=== PATIENT | female | born 1980 | race Caucasian/White ===

== ENCOUNTER 2021-10-07 10:38 | Day surgery (SDC) | payer OTHER ==
[2021-10-07] MEDS ORDERED: EXPAREL 133 MG/10 ML VIAL IJ ONE (10:39)
[2021-10-07] MEDS ORDERED: CEFAZOLIN 2 GM-D5W BAG** 2 GM/50 ML ML IV ONE (11:10)
[2021-10-07] MEDS ORDERED: Lactated Ringers 1,000 ML IV ONE ×2 (11:11→13:36)
[2021-10-07] MEDS ORDERED: Lactated Ringers 1,000 ML IV SCH (11:30)
[2021-10-07] MEDS ORDERED: CEFAZOLIN 2 GM-D5W BAG** 2 GM/50 ML ML IV SCH (11:30)
[2021-10-07] MEDS ORDERED: Transderm Scop 1.5MG Patch TOP ONE (11:33)
[2021-10-07] MEDS ORDERED: Versed 2 MG/2 ML Injection IV PRN (11:34)
[2021-10-07] MEDS ORDERED: Versed 2 MG/2 ML Injection ONE (11:36)
[2021-10-07] MEDS ORDERED: Transderm Scop 1.5MG Patch ONE (11:36)
[2021-10-07] MEDS ORDERED: SUBLIMAZE 100 MCG/2 ML ONE ×2 (12:42→14:58)
[2021-10-07] MEDS ORDERED: OFIRMEV 100 ML IV ONE (12:43)
[2021-10-07] MEDS ORDERED: Ephedrine Sulfate 50 MG/ML ONE (13:53)
[2021-10-07] MEDS ORDERED: DIPRIVAN 200 MG/20 ML IV ONE (14:29)
[2021-10-07] MEDS ORDERED: Decadron 4 MG INJ ONE (14:30)
[2021-10-07] MEDS ORDERED: Zofran 4 MG/2 ML VIAL ONE (14:30)
[2021-10-07] MEDS ORDERED: Marcaine 0.5%/Epinephrine 10 ML ONE (14:30)
[2021-10-07] MEDS ORDERED: Xylocaine-Mpf 2% 5 Ml Vial ONE (14:30)
[2021-10-07] MEDS ORDERED: Quelicin Fliptop 200 MG/10 ML ONE (14:31)
[2021-10-07] MEDS ORDERED: Zemuron 100 MG/10 ML ONE (14:34)
[2021-10-07] MEDS ORDERED: BRIDION 200MG/2ML IV ONE (14:36)
--- NOTE | 2021-10-07 14:51 | XRAY ---
Indication: Left foot navicular excision. Intraoperative fluoroscopy provided for 55 seconds. 8 digital spot images ultimately demonstrates partial resection of medial aspect navicular bone. Correlate with intraoperative findings/report.
[2021-10-07] MEDS ORDERED: Hydromorphone 1 mg/ml Injection ONE (14:58)
[2021-10-07] MEDS ORDERED: EPINEPHRINE 1MG/ML AMP ONE (15:15)
[2021-10-07] MEDS ORDERED: Naropin 0.5% 30 ML VIAL ONE (15:15)
--- NOTE | 2021-10-07 16:38 | OP ---
SURGERY DATE: 10/07/2021 SURGERY TIME: 1242 PREOPERATIVE DIAGNOSIS: 1. ENLARGED NAVICULAR TUBEROSITY LEFT FOOT. 2. POSTERIOR TIBIAL TENDONITIS. 3. PAIN LEFT FOOT. POSTOPERATIVE DIAGNOSIS: 1. ENLARGED NAVICULAR TUBEROSITY LEFT FOOT. 2. POSTERIOR TIBIAL TENDONITIS. 3. PAIN LEFT FOOT. PROCEDURE: 1. Navicular tuberosity excision. 2. Debridement of posterior tibial tendon with tendon advancement. SURGEON: Nilson Swanson D.P.M. MONITORING MANAGER: None. ANESTHESIA: General plus a postoperative regional block. See anesthesia report for details. HEMOSTASIS: A thigh tourniquet set to 350 mm Hg for 57 total minute's tourniquet time. ESTIMATED BLOOD LOSS: Less than 10 cc. MATERIALS: A Jw 2.9 mm juggernaut with broadband, 4-0 Monocryl, and 3-0 Nylon. INJECTABLES: See anesthesia report for details. INDICATIONS FOR PROCEDURE: Alysa is a very pleasant 40 y/o female who presented to my clinic with complaints of left foot pain. The patient did have some indications of pain approximately 1 year ago and presented to another provider in [place] who performed a procedure very similar to the one planned today for her right and left foot. Her right foot responded without complication. Her left foot on the other hand seemed to delay as far as success with the procedure and she stagnated 1 year following the procedure. The patient has failed all conservative management for this issue. On x-rays, it did seem that her navicular tuberosity is significantly enlarged and she could potentially benefit from further excision. An MRI was obtained demonstrating no residual inflammation of the posterior tibial tendon. However, it did appear to be significantly enlarged secondary to postsurgical changes and potentially this may be causing her a significant amount of pain. The patient understands going into the procedure that there is a possibility that the enlarged tendon may need to be resected out and the possibility of a flexor digitorum longus tendon transfer would be performed in its stead. The patient understands all risks, complications, and benefits of the procedure including, but not limited to, infection, hematoma, seroma, possibility of non-bone healing, non-wound healing, tendon failure as well as possible failure of surgical intervention and need for further surgical intervention at a later date. No guarantees were provided as to the outcome. Plenty of time was allowed for the patient to ask questions which were answered to the patient's apparent satisfaction. It is with that we decided to proceed. DESCRIPTION OF PROCEDURE: The patient was brought in to the OR and placed on the OR table in the supine position. At this time, adequate anesthesia was administered until the patient was sedated. A well-padded thigh tourniquet was applied to the left thigh and the tourniquet was set to 350 mm Hg. At this time, the left lower extremity was prepped and draped in the typical sterile fashion and lowered onto the surgical field. At this time, attention was directed to the medial aspect of the ankle where the navicular tuberosity was easily prominent and palpated. A similar incision was planned to the previous incision made by the other provider. However, our incision extended past this incision site. Skin marker was utilized to draw out this site. At this time, an Esmarch was utilized to exsanguinate the leg and the tourniquet was set to 350 mm Hg. A 15 blade was utilized to carry down through the marked out soft tissue planes encountering immediate scar tissue in this area that was very significant. At this time, blunt and sharp dissection was carried down to the level of the navicular tuberosity reflecting the remnant of the thickened posterior tibial tendon dorsa and plantarly off of the navicular tuberosity. Under fluoroscopic guidance, an osteotome was utilized to resect the bone from distal to proximal. A measurement of approximately 6 mm of bone was taken off of this area. Following this, a power rasp was utilized to plane down the edges of the bone until they were smooth with the medial cuneiform and as not to damage the articular cartilage of the talonavicular joint. At this time, copious amounts of sterile saline were utilized to flush the surgical site. The tendon was inspected and determined to have calcifications within the deep segment which was resected out for approximately 3 cm from the insertion of the posterior tibial tendon on its bony attachments at the navicular. At this time, the tendon was deemed to be within adequate quality. Some of the bone and tendon were handed off the field at this time for pathological assessment. At this time, a 2.9 juggernaut with broadband from Jw was introduced under fluoroscopic guidance into the body of the navicular. The 2 ends of suture black screen were cut off and the sliding suture was passed through the dorsal and plantar remnants of the posterior tibial tendon. This was carried up to the proximal aspect of the tendon through a modified Barrie type stitch and secured proximally. The capsule was then repaired over the top of the tendon itself to avoid any irritation from the knot. Copious amounts of sterile saline were utilized to flush the surgical site. 4-0 Monocryl was utilized to coapt the subcutaneous skin edges in a simple buried type fashion. Following this, a horizontal mattress type fashion stitch was used to coapt the skin edges in an everted type fashion. Following this, dressing consisting of betadine, Adaptic, 4 X 4, and Kerlix was applied to the left lower extremity. A well-padded posterior splint was then applied to the left lower extremity with the foot orthogonal relative to the longitudinal access of the leg. Patient was then provided a postoperative popliteal and saphenous block. See anesthesia report for details. Following this, the patient was returned to the PACU with vital signs stable and vascular status intact. The patient handled the procedure as well as the anesthesia without significant complication. Postoperative orders as indicated in the patient's discharge chart.
[2021-10-07 16:41] VITALS: BP 107/64; PULSE 75; O2SAT 99
--- NOTE | 2021-10-08 07:20 | XRAY ---
55 seconds fluoroscopy time in surgery for excision of enlarged navicular left foot.
== END 2021-10-07 16:50 | disposition home or self-care (01) ==
LOC: SDC 10:38
PROVIDERS: ATTEND Podiatrist Foot & Ankle Surgery
DX: M76.822 Posterior tibial tendinitis, left leg (principal); M79.672 Pain in left foot; Q66.89 Other specified congenital deformities of feet; M67.962 Unspecified disorder of synovium and tendon, left lower leg
CPT/HCPCS: 28232; 28238; 73620; 76000; 84703; C1713; 64447; 64450; 76942; J0171; J0330; J0690; J1100; J1170; J2250; J2405; J2704; J2795; J3010; A9270-GY

== ENCOUNTER 2023-10-01 11:25 | Emergency (ER) | payer OTHER ==
--- NOTE | 2023-10-01 11:29 | ERPHSYRPT ---
- History of Present Illness Time Seen by Provider: 10/01/23 11:29 Source: patient Exam Limitations: no limitations Physician History: This is a 42-year-old white female patient of Dr. Lopez and strategic advisor Dr. Francisca Bailey. Dr. Bailey evaluated this patient today and felt that the patient's bladder was markedly enlarged. Patient is sent to us for both enlarge d bladder and urinary retention. The patient was seen by nurse practitioner Josh on 09/26/2023 and felt that this patient had a uterine prolapse and that is how she was referred to Dr. Bailey, gynecology. Since Dr. Bailey did not have the equipment or the option of performing studies acutely, this patient is sent to the emergency department. Patient is complaining of painful straining to urinate and is only "dribbling" urine for the last 2 to 3 days. She has never had this before. Patient also complains of constipation and difficulty having bowel movements in the last several days as well. Patient has a history of anxiety as well as TIA in the past. Her TIA was secondary to "a blood clot" intracranially. She has residual left upper extremity weakness from it. Timing/Duration: day(s), worse (2 to 3 days) Activites at Onset: other (Attempting to urinate or have a bowel movement) Quality: sharpness Onset Location: suprapubic, abdominal pain Pain Radiation: none Severity of Pain-Max: moderate Severity of Pain-Current: moderate Prior abdominal problems: none Sexual intercourse history: non-contributory Modifying Factors: Improves With: nothing Associated Symptoms: abdominal pain (Prepubic and pelvic region), dysuria, other (Urinary urgency, retention) Allergies/Adverse Reactions: No Known Drug Allergies Allergy (Verified 10/01/23 11:35) Home Medications: ALPRAZolam 0.25 MG [xanAX 0.25 MG] 0.25 mg PO BID PRN 10/01/23 [History] Escitalopram Oxalate [Lexapro] 10 mg PO HS 10/01/23 [History] Travel Risk - International Travel Have you traveled outside of the country in past 3 weeks: No - Emerging Infectious Disease Are you exhibiting symptoms associated with any current EIDs: No - Review of Systems Constitutional: No Symptoms Eyes: No Symptoms Ears, Nose, & Throat: No Symptoms Respiratory: No Symptoms Cardiac: No Symptoms Abdominal/Gastrointestinal: Abdominal Pain (Prepubic region) Genitourinary Symptoms: Dysuria, Urgency, Urinary Retention Musculoskeletal: No Symptoms Skin: No Symptoms Neurological: No Symptoms Psychological: No Symptoms Endocrine: No Symptoms Hematologic/Lymphatic: No Symptoms Immunological/Allergic: No Symptoms All Other Systems: Reviewed and Negative - Past Medical History Pertinent Past Medical History: No Neurological History: TIA, Other ENT History: No Pertinent History Cardiac History: No Pertinent History Respiratory History: No Pertinent History Endocrine Medical History: No Pertinent History Musculoskeletal History: No Pertinent History GI Medical History: No Pertinent History History: No Pertinent History Psycho-Social History: No Pertinent History Female Reproductive Disorders: No Pertinent History Other Medical History: TIA WITH L UE SYMPTOMS, SHE HAD A BLOOD CLOT IN HER HEAD. SHE NOTES RESIDUAL WEAKNESS IN L UE. - Past Surgical History Past Surgical History: Yes Neuro Surgical History: No Pertinent History Cardiac: No Pertinent History Respiratory: No Pertinent History Gastrointestinal: No Pertinent History Genitourinary: No Pertinent History Musculoskeletal: Other Female Surgical History: Tubal Ligation, Other Other Surgical History: adrienne foot surgery, uterine ablation - Social History Smoking Status: Never smoker Drug Use: none - Nursing Vital Signs Nursing Vital Signs: Initial Vital Signs Temperature 98 F 10/01/23 11:25 Pulse Rate 78 10/01/23 11:25 Respiratory Rate 20 10/01/23 11:25 Blood Pressure 116/80 10/01/23 11:25 O2 Sat by Pulse Oximetry 100 10/01/23 11:25 Pain Scale Pain Intensity 7 - Course Nursing assessment & vital signs reviewed: Yes Ordered Tests: Active Orders 24 hr Category Date Time Status Cath [Catheter-Mikado Dykes] STAT Care 10/01/23 12:00 Active ABDOMEN AND PELVIS W/0 CONTRAS [CT] Stat Exams 10/01/23 11:31 Completed AMYLASE Stat Lab 10/01/23 11:35 Results CBC W DIFF Stat Lab 10/01/23 11:35 Completed CULTURE,URINE Stat Lab 10/01/23 11:30 Received LIPASE Stat Lab 10/01/23 11:35 Results UA W/RFX UR CULTURE Stat Lab 10/01/23 11:30 Completed Medication Summary Generic Name Dose Route Start Last Admin Trade Name Freq PRN Reason Stop Dose Admin Sodium Chloride 1,000 mls @ 999 mls/hr 10/01/23 12:37 10/01/23 12:49 Sodium Chloride 0.9% 1000 Ml IV 10/01/23 13:37 Not Given .Q1H1M STA Lab/Rad Data: Laboratory Result Diagrams 10/01/23 11:35 10/01/23 11:35 Laboratory Results 10/01/23 10/01/23 10/01/23 Range/Units 11:35 11:35 11:30 WBC 6.9 (4.0-10.5) x10^3/uL RBC 4.49 (4.1-5.4) x10^6/uL Hgb 12.9 (12.0-16.0) g/dL Hct 39.6 (35-47) % MCV 88.2 (78-100) fL MCH 28.7 (26-32) pg MCHC 32.6 (32-36) g/dL RDW 13.2 (11.5-14.0) % Plt Count 314 (150-450) x10^3/uL MPV 10.1 (7.5-11.0) fL Gran % 56.6 (36.0-66.0) % Immature Gran % (Auto) 0.1 (0.00-0.4) % Nucleat RBC Rel Count 0.0 (0.00-0.1) % Eos # (Auto) 0.19 (0-0.5) x10^3/uL Immature Gran # (Auto) 0.01 (0.00-0.03) x10^3u/L Absolute Lymphs (auto) 2.27 (1.0-4.6) x10^3/uL Absolute Monos (auto) 0.50 (0.0-1.3) x10^3/uL Absolute Nucleated RBC 0.00 (0.00-0.01) x10^3u/L Lymphocytes % 32.8 (24.0-44.0) % Monocytes % 7.2 (0.0-12.0) % Eosinophils % 2.7 (0.00-5.0) % Basophils % 0.6 (0.0-0.4) % Absolute Granulocytes 3.92 (1.4-6.9) x10^3/uL Basophils # 0.04 (0-0.4) x10^3/uL Sodium Cancelled Sodium Direct 139 (138-146) mmol/L Potassium 3.8 (3.5-4.9) mmol/L Chloride 102 (98-109) mmol/L Carbon Dioxide 26 (24-29) mmol/L Anion Gap Cancelled BUN Cancelled Venous BUN 22 (8-26) mg/dL Creatinine 0.8 (0.6-1.3) mg/dL Estimated GFR Cancelled Glucose 100 (70-105) mg/dL Calcium Cancelled Ionized Calcium 1.22 (1.12-1.32) mmol/L Total Bilirubin Cancelled AST Cancelled ALT Cancelled Alkaline Phosphatase Cancelled Serum Total Protein Cancelled Albumin Cancelled Amylase Pending Lipase Pending Urine Color Yellow (Yellow) Urine Appearance Clear (Clear) Urine pH 5.5 (4.6-8.0) Ur Specific [place] 1.010 (1.005-1.030) Urine Protein Negative (Negative) Urine Glucose (UA) Negative (Negative) mg/dL Urine Ketones Negative (Negative) Urine Blood Negative (Negative) Urine Nitrite Positive A (Negative) Urine Bilirubin Negative (Negative) Urine Urobilinogen 0.2 (0.2) mg/dL Ur Leukocyte Esterase Trace A (Negative) U Hyaline Cast (Auto) NONE SEEN (0-2) /LPF Urine Microscopic RBC 0-2 (0-5) /HPF Urine Microscopic WBC 6-10 A (0-5) /HPF Ur Epithelial Cells None Seen (None Seen) /HPF Urine Bacteria Many A (None Seen) /HPF Urine Culture Reflexed ORDERED SEPARATELY (NO) - Progress Progress: improved, re-examined Air Movement: good Progress Note: 10/01/23 12:34 My medical decision making and the assignment of moderate complexity to this patient's medical issue today is based on review of the patient's past medical history, review the patient's medication list, review of patient drug allergy list, history present illness and physical findings on examination. The workup in this patient includes placement of intravenous line, urinary bladder scan, CT scan of the abdomen pelvis without contrast, CBC, CMP, urinalysis and placement of a Dykse catheter. Differential diagnosis includes uterine prolapse, bladder prolapse, urinary tract infection, constipation, 10/01/23 12:38 CT scan of the abdomen pelvis without contrast was interpreted by the radiologist and I reviewed the impression. Impression states mild fecal stasis. Normal appendix. Nonobstructed stomach and bowel loops. No free air. Near empty urinary bladder. Uterus and aorta are unremarkable. Tiny amount of fluid in the cul-de-sac suggest possible leaking ovarian cyst. I discussed these findings with the patient. 10/01/23 13:10 I interpreted the patient's laboratory data results. Patient does have a uri nary tract infection. No other abnormal results on the patient's laboratory studies to suggest an acute or emergent medical issue at this time. We will attempt to make an appointment for this patient to see a strategic advisor to evaluate and manage the patient's uterine prolapse. 10/01/23 13:11 Patient states that the placement of a Dykes catheter did not relieve the patient's pain. Blood Culture(s) Obtained: No Counseled pt/family regarding: lab results, diagnosis, need for follow-up, rad results Medical Desision Making - Independent Historian Additional History obtained from: PCP - Diagnostic Testing Diagnostic test were ordered, analyzed, and reviewed by me: Yes Radiological Interpretation: Reviewed by me, Teleradiologist Report - Risk of complications The pt has a mod risk of morbidity or mortality based on: Need for prescription drug management - Departure Departure Disposition: Home Clinical Impression: Uterine prolapse, UTI (urinary tract infection) Condition: Stable Critical Care Time: No Referrals: RADHA MORENO NP [NON-STAFF PHY W/O PRIVILEGES] - Follow up/PCP as directed Additional Instructions: Drink plenty of fluids. Take your medications as prescribed. Follow-up with the gynecology appointment we arranged for you as an outpatient. Follow the bowel hygiene plan that we discussed including the use of MiraLAX, milk of magnesia and magnesium citrate which are products [id number] at the pharmacy. Follow their directions on the packaging. May also use stool softeners, fleets enemas or glycerin suppositories. Call your primary care provider today, 10/01/2023, to make arranges for follow-up appointment to discuss the constipation issue. Prescriptions: Cephalexin Mh 500 mg [Keflex 500 mg] 500 mg PO TID #21 cap Phenazopyridine HCl 200 mg [Pyridium 200 mg] 200 mg PO TID #6 tablet
[2023-10-01 11:47] LABS: Absolute Neutrophil Ct (ANC) 3.92 x10^3/uL (1.4-6.9); BASOPHIL % 0.6 % (0.0-0.4); Basophil (Absolute #) 0.04 x10^3/uL (0-0.4); Eosinophil % 2.7 % (0.00-5.0); Eosinophil (Absolute #) 0.19 x10^3/uL (0-0.5); Hematocrit 39.6 % (35-47); Hemoglobin 12.9 g/dL (12.0-16.0); IMMATURE GRAN # 0.01 x10^3u/L (0.00-0.03); IMMATURE GRAN % 0.1 % (0.00-0.4); Lymphocyte (Absolute #) 2.27 x10^3/uL (1.0-4.6); Lymphocytes % 32.8 % (24.0-44.0); Mean Cell Volume 88.2 fL (78-100); Mean Corpuscular Hemoglobin 28.7 pg (26-32); Mean Corpuscular Hgb Concent. 32.6 g/dL (32-36); Mean Platelet Volume 10.1 fL (7.5-11.0); Monocytes % 7.2 % (0.0-12.0); Neutrophil % 56.6 % (36.0-66.0); Platelet Count 314 x10^3/uL (150-450); Red Blood Count 4.49 x10^6/uL (4.1-5.4); Red Cell Distribution Width 13.2 % (11.5-14.0); White Blood Count 6.9 x10^3/uL (4.0-10.5)
[2023-10-01 11:52] VITALS: TEMP 98
[2023-10-01 11:57] LABS: ISTAT BUN 22 mg/dL (8-26); ISTAT CL 102 mmol/L (98-109); ISTAT CO2 26 mmol/L (24-29); ISTAT CREA 0.8 mg/dL (0.6-1.3); ISTAT GLUC 100 mg/dL (70-105); ISTAT K 3.8 mmol/L (3.5-4.9); ISTAT NA 139 mmol/L (138-146); ISTAT iCA 1.22 mmol/L (1.12-1.32)
--- NOTE | 2023-10-01 12:32 | XRAY ---
Indication: Urinary retention. Constipation. Multiple contiguous axial images obtained through the abdomen and pelvis without contrast. Comparison: None Lung bases clear. Heart not enlarged. Noncontrasted stomach and bowel loops appear nonobstructed with normal-appearing appendix. Mild scattered colonic fecal debris greatest in ascending and transverse colon. Tiny cul-de-sac fluid presumed physiologic from rupture/leaking cyst. No free air. Remaining liver, gallbladder, pancreas, spleen, adrenal glands, kidneys, ureters, near empty urinary bladder, uterus, and aorta are unremarkable for noncontrast exam. Osseous structures intact with minimal dextroscoliosis centered at L3. Impression: 1. Mild fecal stasis, tiny physiologic cul-de-sac fluid, and minimal dextroscoliosis. 2. Remaining CT abdomen/pelvis without contrast exam is negative.
[2023-10-01] MEDS: Sodium Chloride 0.9% 1000 ML 1,000 ML IV STA (12:49)
[2023-10-01 13:01] LABS: Appearance Clear (Clear); Bacteria Many /HPF (None Seen); Bilirubin Negative (Negative); Blood Negative (Negative); Epithelial Cells None Seen /HPF (None Seen); Glucose, Urine Negative (Negative); Hyaline Casts NONE SEEN /LPF (0-2); Ketones Negative (Negative); Leukocyte Esterase Trace (Negative); Nitrite Positive (Negative); Ph 5.5 (4.6-8.0); Protein,Urine Dip Negative (Negative); RBC 0-2 /HPF (0-5); Urobilinogen 0.2 mg/dL (0.2)
[2023-10-01 13:05] LABS: ADD URINE CULTURE? ORDERED SEPARATELY (NO)
[2023-10-01 14:22] VITALS: O2SAT 98
[2023-10-01 14:40] VITALS: BP 127/77; PULSE 76; RESP 16
== END 2023-10-01 14:40 | disposition home or self-care (01) ==
LOC: ED 11:25
DX: N81.4 Uterovaginal prolapse, unspecified (principal); N39.0 Urinary tract infection, site not specified; K59.00 Constipation, unspecified; Z79.899 Other long term (current) drug therapy
CPT/HCPCS: 36415; 51702; 74176; 80047; 81001; 82150; 83690; 85025; 87077; 87086; 87186; 99284

== ENCOUNTER 2023-10-15 12:59 | Emergency (ER) | payer OTHER ==
[2023-10-15 13:13] VITALS: TEMP 97.9; O2SAT 98
[2023-10-15 13:31] LABS: Appearance Clear (Clear); Bacteria Few /HPF (None Seen); Bilirubin Negative (Negative); Blood Negative (Negative); Epithelial Cells Moderate /HPF (None Seen); Glucose, Urine Negative (Negative); Hyaline Casts NONE SEEN /LPF (0-2); Ketones Negative (Negative); Leukocyte Esterase Negative (Negative); Nitrite Negative (Negative); Ph 5.5 (4.6-8.0); Protein,Urine Dip Negative (Negative); RBC 0-2 /HPF (0-5); Specific Gravity 1.015 (1.005-1.030); Urobilinogen 0.2 mg/dL (0.2); WBC 0-2 /HPF (0-5)
[2023-10-15 13:32] LABS: ADD URINE CULTURE? NO (NO)
--- NOTE | 2023-10-15 13:36 | ERPHSYRPT ---
- History of Present Illness Time Seen by Provider: 10/15/23 13:34 Historian: patient Exam Limitations: no limitations Patient Subjective Stated Complaint: Pt states "I went to [facility] because I am having left lower back pain and left lower abdomen pain. I have a prolapsed uterus and I am having trouble getting catheters to self cath with." Triage Nursing Assessment: Pt presented alert and oriented X 3, skin pwd. Pt ambulates with an upright steady gait, able to speak in clear ufll sentences. Pt resting comfortably on the bed. Physician History: This is a 42-year-old white female patient who was sent to us from [facility] because of complaint of some left flank pain. Patient has history of uterine prolapse per her report. Today she had left flank pain. Patient was seen by me on 10/01/2023 for the same complaint. On that visit she was found to have a UTI plus evidence of constipation. Since that time she states that she is seen a dictating machine typist. They did tell her that she had a cystocele and a grade 3 uterine prolapse. She has an appointment to see a urogynecologist on November 07, 2023. A CT scan of the abdomen pelvis was performed on 10/01/2023 which showed a normal appendix, no free air or free fluid. There was a near empty urinary bladder. The uterus and aorta appeared unremarkable. Patient herself states she does not know why they sent her here because she does not feel it is an emergency situation/issue. Patient has a history of TIAs in the past and anxiety. Patient denies chest pain and she denies shortness of breath. She also stated that her primary care office has been trying to get her catheter so she can self catheterize. They have checked [employer] and for unknown specific reasons, she has yet to receive any catheters. The patient states this is probably the main issue for her. Timing/Duration: today Activities at Onset: none Quality: aching Abdominal Pain Onset Location: flank Pain Radiation: no radiation Severity of Pain-Max: mild Severity of Pain-Current: mild Modifying Factors: Improves With: nothing (Moderate) Associated Symptoms: denies symptoms Previous symptoms: same symptoms as today, recently seen, recently treated Allergies/Adverse Reactions: No Known Drug Allergies Allergy (Verified 10/01/23 11:35) Home Medications: Escitalopram Oxalate [Lexapro] 10 mg PO HS 10/01/23 [History] Hydroxyzine HCl 25 mg [Atarax 25 mg] 25 mg PO DAILY 10/15/23 [History] Hx Tetanus, Diphtheria Vaccination/Date Given: Yes Hx Influenza Vaccination/Date Given: Yes Immunizations Up to Date: No Travel Risk - International Travel Have you traveled outside of the country in past 3 weeks: No - Emerging Infectious Disease Are you exhibiting symptoms associated with any current EIDs: Yes Symptoms: Abdominal Pain - Review of Systems Constitutional: No Symptoms Eyes: No Symptoms Ears, Nose, & Throat: No Symptoms Respiratory: No Symptoms Cardiac: No Symptoms Abdominal/Gastrointestinal: No Symptoms Genitourinary Symptoms: Flank Pain (Left) Musculoskeletal: No Symptoms Skin: No Symptoms Neurological: No Symptoms Psychological: No Symptoms Endocrine: No Symptoms Hematologic/Lymphatic: No Symptoms Immunological/Allergic: No Symptoms All Other Systems: Reviewed and Negative - Past Medical History Pertinent Past Medical History: Yes Neurological History: TIA, Other ENT History: No Pertinent History Cardiac History: No Pertinent History Respiratory History: No Pertinent History Endocrine Medical History: No Pertinent History Musculoskeletal History: No Pertinent History GI Medical History: No Pertinent History History: No Pertinent History Psycho-Social History: No Pertinent History Female Reproductive Disorders: No Pertinent History Other Medical History: TIA WITH L UE SYMPTOMS, SHE HAD A BLOOD CLOT IN HER HEAD. SHE NOTES RESIDUAL WEAKNESS IN L UE. - Past Surgical History Past Surgical History: Yes Neuro Surgical History: No Pertinent History Cardiac: No Pertinent History Respiratory: No Pertinent History Gastrointestinal: No Pertinent History Genitourinary: No Pertinent History Musculoskeletal: Other Female Surgical History: Tubal Ligation, Other Other Surgical History: adrienne foot surgery, uterine ablation - Female History Hx Last Menstrual Period: ablasion Hx Now: No - Social History Smoking Status: Never smoker Exposure to second hand smoke: No Drug Use: none - Nursing Vital Signs Nursing Vital Signs: Initial Vital Signs Temperature 97.9 F 10/15/23 13:09 Pulse Rate 86 10/15/23 13:09 Respiratory Rate 20 10/15/23 13:09 Blood Pressure 120/70 10/15/23 13:09 O2 Sat by Pulse Oximetry 98 10/15/23 13:09 Pain Scale Pain Intensity 5 - Physical Exam General Appearance: no apparent distress, alert, anxiety Eye Exam: PERRL/EOMI, eyes nml inspection Ears, Nose, Throat Exam: normal ENT inspection, moist mucous membranes Neck Exam: normal inspection, non-tender, supple, full range of motion Respiratory Exam: normal breath sounds, lungs clear, No chest tenderness, No respiratory distress Cardiovascular Exam: regular rate/rhythm, normal heart sounds, normal peripheral pulses Gastrointestinal/Abdomen Exam: soft, normal bowel sounds, No tenderness Pelvic Exam: not done Rectal Exam: not done Back Exam: normal inspection, normal range of motion, No CVA tenderness, No vertebral tenderness Extremity Exam: normal inspection, normal range of motion, pelvis stable Neurologic Exam: alert, oriented x 3, cooperative, tableau developer II-XII nml as tested, nml cerebellar function, nml station & gait, sensation nml Skin Exam: normal color, warm, dry Lymphatic Exam: No adenopathy SpO2 Interpretation: normal SpO2: 98 O2 Delivery: Room Air - Course Nursing assessment & vital signs reviewed: Yes Ordered Tests: Active Orders 24 hr Category Date Time Status UA W/RFX UR CULTURE Stat Lab 10/15/23 13:26 Completed Lab/Rad Data: Laboratory Results 10/15/23 Range/Units 13:26 Urine Color Yellow (Yellow) Urine Appearance Clear (Clear) Urine pH 5.5 (4.6-8.0) Ur Specific [place] 1.015 (1.005-1.030) Urine Protein Negative (Negative) Urine Glucose (UA) Negative (Negative) mg/dL Urine Ketones Negative (Negative) Urine Blood Negative (Negative) Urine Nitrite Negative (Negative) Urine Bilirubin Negative (Negative) Urine Urobilinogen 0.2 (0.2) mg/dL Ur Leukocyte Esterase Negative (Negative) U Hyaline Cast (Auto) NONE SEEN (0-2) /LPF Urine Microscopic RBC 0-2 (0-5) /HPF Urine Microscopic WBC 0-2 (0-5) /HPF Ur Epithelial Cells Moderate A (None Seen) /HPF Urine Bacteria Few A (None Seen) /HPF Urine Culture Reflexed NO (NO) - Progress Progress: improved Progress Note: 10/15/23 14:26 My medical decision making and the assignment of low complexity to this patient's medical issue today is based on review of the patient's past medical 3, review of the patient's medication list, review of patient drug allergy list, history present illness and physical findings on examination. The patient is not in need of any radiographic studies. I did send the urine for urinalysis. This patient does not have an acute surgical abdomen or an acute, emergent medical issue at this time. She herself states that she does not have significant abdominal pain and is unclear why [facility] sent her to our facility to be evaluated. I do not believe the patient would benefit from a repeat CT scan of the abdomen pelvis. 1 was performed 2 weeks ago. Her main concern is that she wants to have urinary bladder catheters to self catheterize. We will try to help her with this endeavor. I am hopeful that we can at least send her home with a few catheters. Counseled pt/family regarding: lab results, diagnosis, need for follow-up Medical Desision Making - Diagnostic Testing Diagnostic test were ordered, analyzed, and reviewed by me: Yes - Risk of complications Minimal Risk: Minimal risk of morbidity - Departure Departure Disposition: Home Clinical Impression: Flank pain, chronic, Encounter for medical screening examination Condition: Stable Critical Care Time: No Referrals: PARK DUFFY, [Primary Care Provider] - Follow up/PCP as directed Additional Instructions: Drink plenty fluids. Take your medication as prescribed. Keep your appointment with your urogynecologist.
[2023-10-15 14:00] VITALS: RESP 18
[2023-10-15 14:30] VITALS: BP 106/73; PULSE 72
== END 2023-10-15 14:37 | disposition home or self-care (01) ==
LOC: ED 12:59
DX: Z71.1 Person with feared health complaint in whom no diagnosis is made (principal); G89.29 Other chronic pain; R10.9 Unspecified abdominal pain; Z79.899 Other long term (current) drug therapy
CPT/HCPCS: 81001; 99283

== ENCOUNTER 2023-12-20 14:39 | Emergency (ER) | payer OTHER ==
[2023-12-20 15:04] VITALS: TEMP 98.3
[2023-12-20] MEDS ORDERED: Sodium Chloride 0.9% 1000 ML 1,000 ML ONE (15:17)
[2023-12-20] MEDS: Sodium Chloride 0.9% 1000 ML 1,000 ML IV STA (15:18)
[2023-12-20 15:22] LABS: Absolute Neutrophil Ct (ANC) 7.67 x10^3/uL (1.56-6.13); BASOPHIL % 0.4 % (0.1-1.2); Basophil (Absolute #) 0.05 x10^3/uL (0.01-0.08); Eosinophil % 5.9 % (0.7-5.8); Eosinophil (Absolute #) 0.72 x10^3/uL (0.04-0.36); Hematocrit 35.8 % (34.1-44.9); Hemoglobin 11.8 g/dL (11.2-15.7); IMMATURE GRAN # 0.05 x10^3u/L (0.001-0.031); IMMATURE GRAN % 0.4 % (0.001-0.429); Lymphocyte (Absolute #) 2.84 x10^3/uL (1.18-3.74); Lymphocytes % 23.2 % (19.3-51.7); Mean Platelet Volume 9.8 fL (9.4-12.3); Monocyte (Absolute #) 0.92 x10^3/uL (0.24-0.86); Monocytes % 7.5 % (4.7-12.5); Neutrophil % 62.6 % (34.0-71.1); Platelet Count 362 x10^3/uL (182-369); Red Blood Count 4.07 x10^6/uL (3.93-5.22); Red Cell Distribution Width 14.4 % (11.7-14.4); White Blood Count 12.3 x10^3/uL (3.98-10.04)
[2023-12-20 15:36] LABS: ALBUMIN 3.6 g/dL (3.5-5.0); ANION GAP 9.9 MEQ/L (5-15); BILIRUBIN,TOTAL 0.3 mg/dL (0.2-1.3); Creatinine 1 0.81 mg/dL (0.52-1.04); EST GLOMERULAR FILTRATION RATE 91.7 ML/MIN; Potassium 3.6 mmol/L (3.5-5.1); Total Protein 6.4 g/dL (6.3-8.2)
[2023-12-20 16:10] VITALS: RESP 16
--- NOTE | 2023-12-20 17:10 | XRAY ---
Indication: Cough. Status post partial hysterectomy 3 days ago Multiple contiguous axial images obtained through the chest without contrast. Comparison: None Mild/moderate bilateral pleural effusions with moderate bibasilar compressive atelectasis. No suspicious pulmonary mass/nodule or pneumothorax. Heart not enlarged. Aorta is normal in course and caliber. No pathologic mediastinal lymphadenopathy. Bony thorax intact. Visualized chest wall demonstrates mild diffuse subcutaneous emphysema presumably related to recent surgery. CT abdomen/pelvis reported separately. Impression: 1. Mild/moderate bilateral pleural effusions without cardiomegaly. Rule out noncardiogenic causes. 2. Diffuse chest wall subcutaneous emphysema presumed related to recent surgery.
--- NOTE | 2023-12-20 17:18 | XRAY ---
Indication: Pelvic pain. Vaginal hematoma. Status post partial hysterectomy 3 days ago Multiple contiguous axial images obtained through the abdomen and pelvis using 80 cc Isovue 370 contrast. Comparison: October 01, 2023 CT chest reported separately. Noncontrasted stomach and bowel loops appear nonobstructed. Normal appendix. There is now moderate diffuse scattered colonic fecal debris throughout. There has been partial hysterectomy. Presumed postoperative small pelvic free fluid and tiny abdominal/pelvic free air. No walled off fluid collection. Remaining liver, gallbladder, pancreas, spleen, adrenal glands, kidneys, ureters, bladder, and aorta are unremarkable. No pathologic retroperitoneal lymphadenopathy. Vagina demonstrates new right labia edema and induration presumed inflammatory. Vaginal hematoma reported clinically. Osseous structures intact. New diffuse abdominal wall and bilateral inguinal subcutaneous emphysema presumably related to recent surgery. No pathologic inguinal lymphadenopathy. Impression: 1. New diffuse abdominal wall and bilateral inguinal subcutaneous emphysema presumed related to recent surgery. Also pelvic free fluid and tiny free air presumed related to patient's partial hysterectomy. 2. New vaginal right labia edema/induration presumed inflammatory. Vaginal hematoma reported clinically. 3. New moderate diffuse fecal stasis.
[2023-12-20 19:25] LABS: Appearance Clear (Clear); Bacteria None Seen /HPF (None Seen); Bilirubin Negative (Negative); Blood Negative (Negative); Epithelial Cells Moderate /HPF (None Seen); Glucose, Urine Negative (Negative); Hyaline Casts NONE SEEN /LPF (0-2); Ketones Negative (Negative); Leukocyte Esterase Negative (Negative); Nitrite Negative (Negative); Protein,Urine Dip Negative (Negative); RBC 0-2 /HPF (0-5); Specific Gravity >=1.030 (1.005-1.030); WBC 0-2 /HPF (0-5)
[2023-12-20] MEDS ORDERED: Zofran 4 MG/2 ML VIAL ONE (19:27)
[2023-12-20] MEDS ORDERED: SUBLIMAZE 100 MCG/2 ML ONE (19:28)
[2023-12-20 19:29] LABS: ADD URINE CULTURE? NO (NO)
[2023-12-20] MEDS: Zofran 4 MG/2 ML VIAL IV ONE (19:29)
[2023-12-20] MEDS: SUBLIMAZE 100 MCG/2 ML IV ONE (19:31)
[2023-12-20 20:51] VITALS: BP 104/69; PULSE 73; O2SAT 98
--- NOTE | 2023-12-20 21:28 | ERPHSYRPT ---
- History of Present Illness Time Seen by Provider: 12/20/23 14:48 Source: patient Exam Limitations: no limitations Patient Subjective Stated Complaint: pt states she had a partial hysterectomy and bladder lift on Sunday. pt states that today she has swelling to her vagina Triage Nursing Assessment: pt ambulated into the er; pt is axo x4; c/o swelling to vagina; swelling present to rt labia majoria; swelling present to rt groin; tenderness present to vagina; active bowel sounds in all quads; skin PDW; no respiratory distress present; tachycardic Physician History: 43-year-old female with history of uterine prolapse status post laparoscopic/robotic hysterectomy/bladder lift postop day [address] [facility] [address] Rivas presented in the ER with increasing swelling and pain right labia/upper thigh and right groin area since yesterday with worsening since morning. She denies any nausea or vomiting. Patient also reports having trouble breathing since the day of surgery after she woke up from anesthesia. Minimal coughing. She called her primary urogynecologist and was recommended to be seen in the ER for further evaluation. Allergies/Adverse Reactions: oxycodone Allergy (Verified 12/20/23 14:47) Hives Home Medications: Escitalopram Oxalate [Lexapro] 10 mg PO HS 10/01/23 [History] Hydroxyzine HCl 25 mg [Atarax 25 mg] 25 mg PO DAILY 10/15/23 [History] Alprazolam [Xanax] 0.5 mg PO DAILY 12/20/23 [History] Hydromorphone HCl 2 mg PO Q6HPRN PRN 12/20/23 [History] Hx Tetanus, Diphtheria Vaccination/Date Given: Yes Hx Influenza Vaccination/Date Given: Yes Hx Pneumococcal Vaccination/Date Given: No Immunizations Up to Date: No Travel Risk - International Travel Have you traveled outside of the country in past 3 weeks: No - Emerging Infectious Disease Are you exhibiting symptoms associated with any current EIDs: No - Review of Systems Constitutional: Fatigue Eyes: No Symptoms Respiratory: Cough, Dyspnea Cardiac: No Symptoms Abdominal/Gastrointestinal: Abdominal Pain Genitourinary Symptoms: No Symptoms Musculoskeletal: No Symptoms Skin: No Symptoms Neurological: No Symptoms Endocrine: No Symptoms Hematologic/Lymphatic: No Symptoms - Past Medical History Pertinent Past Medical History: Yes Neurological History: TIA, Other ENT History: No Pertinent History Cardiac History: No Pertinent History Respiratory History: No Pertinent History Endocrine Medical History: No Pertinent History Musculoskeletal History: No Pertinent History GI Medical History: No Pertinent History History: No Pertinent History Psycho-Social History: No Pertinent History Female Reproductive Disorders: No Pertinent History Other Medical History: TIA WITH L UE SYMPTOMS, SHE HAD A BLOOD CLOT IN HER HEAD. SHE NOTES RESIDUAL WEAKNESS IN L UE. - Past Surgical History Past Surgical History: Yes Neuro Surgical History: No Pertinent History Cardiac: No Pertinent History Respiratory: No Pertinent History Gastrointestinal: No Pertinent History Genitourinary: No Pertinent History Musculoskeletal: Other Female Surgical History: Hysterectomy, Tubal Ligation, Other Other Surgical History: adrienne foot surgery, uterine ablation, partial hysterectomy, bladder sling - Female History Hx Now: No - Social History Smoking Status: Never smoker Exposure to second hand smoke: No Drug Use: none - Social Determinants of Health Will the patient participate in the screening: Yes Do you worry about a steady place to live?: No Do you have any problems with any of the following?: No known problems In the past 12 months,have you had to go without utilities?: No Transportation Issues: No Has anyone in your support network made you feel unsafe?: No Have you or anyone in your house had to go without enough: No - Nursing Vital Signs Nursing Vital Signs: Initial Vital Signs Temperature 98.3 F 12/20/23 14:50 Pulse Rate 101 H 12/20/23 14:50 Respiratory Rate 18 12/20/23 14:50 Blood Pressure 102/73 12/20/23 14:50 O2 Sat by Pulse Oximetry 97 12/20/23 14:50 Pain Scale Pain Intensity 0 - Physical Exam General Appearance: no apparent distress, alert Ears, Nose, Throat Exam: normal ENT inspection Neck Exam: normal inspection, supple, full range of motion Respiratory Exam: normal breath sounds, lungs clear Cardiovascular Exam: regular rate/rhythm, normal heart sounds Gastrointestinal/Abdomen Exam: soft, normal bowel sounds, tenderness (Appropriate tenderness with well-healing trocar incision sites.) Pelvic Exam: other (Swelling of right labia, pubic and groin/lower abdomen. Soft consistency. Tender to touch.) Extremity Exam: normal inspection, normal range of motion Neurologic Exam: alert, oriented x 3, cooperative Skin Exam: normal color SpO2 Interpretation: normal SpO2: 98 O2 Delivery: Room Air Ordered Tests: Active Orders 24 hr Category Date Time Status AMA [Release AMA] OM.NOW Care 12/20/23 20:38 Completed IV Insertion STAT Care 12/20/23 15:11 Completed ABDOMEN AND PELVIS W CONTRAST [CT] Stat Exams 12/20/23 15:12 Completed CHEST WITHOUT CONTRAST [CT] Stat Exams 12/20/23 16:22 Completed CBC W DIFF Stat Lab 12/20/23 15:10 Completed CMP Stat Lab 12/20/23 15:10 Completed UA W/RFX UR CULTURE Stat Lab 12/20/23 19:16 Completed Medication Summary Discontinued Medications Generic Name Dose Route Start Last Admin Trade Name Freq PRN Reason Stop Dose Admin Fentanyl Citrate 50 mcg 12/20/23 19:25 12/20/23 19:31 Fentanyl Citrate 100 Mcg/2 Ml* Vial IV 12/20/23 19:26 50 mcg STAT ONE Administration Fentanyl Citrate Confirm 12/20/23 19:28 Fentanyl Citrate 100 Mcg/2 Ml* Vial Administered 12/20/23 19:29 Dose 100 mcg .ROUTE .STK-MED ONE Sodium Chloride 1,000 mls @ 999 mls/hr 12/20/23 15:11 12/20/23 19:36 Sodium Chloride 0.9% 1000 Ml IV 12/20/23 16:11 Infused .Q1H1M STA Infusion Sodium Chloride Confirm 12/20/23 15:17 Sodium Chloride 0.9% 1000 Ml Administered 12/20/23 15:18 Dose 1,000 mls @ ud .ROUTE .STK-MED ONE Ondansetron HCl 4 mg 12/20/23 19:25 12/20/23 19:29 Ondansetron Hcl 4 Mg/2 Ml Vial IV 12/20/23 19:26 4 mg STAT ONE Administration Ondansetron HCl Confirm 12/20/23 19:27 Ondansetron Hcl 4 Mg/2 Ml Vial Administered 12/20/23 19:28 Dose 4 mg .ROUTE .STK-MED ONE Lab/Rad Data: Laboratory Result Diagrams 12/20/23 15:10 12/20/23 15:10 Laboratory Results 12/20/23 12/20/23 12/20/23 Range/Units 19:16 15:10 15:10 WBC 12.3 H (3.98-10.04) x10^3/uL RBC 4.07 (3.93-5.22) x10^6/uL Hgb 11.8 (11.2-15.7) g/dL Hct 35.8 (34.1-44.9) % MCV 88.0 (79.4-94.8) fL MCH 29.0 (25.6-32.2) pg MCHC 33.0 (32.2-35.5) g/dL RDW 14.4 (11.7-14.4) % Plt Count 362 (182-369) x10^3/uL MPV 9.8 (9.4-12.3) fL Gran % 62.6 (34.0-71.1) % Immature Gran % (Auto) 0.4 (0.001-0.429) % Nucleat RBC Rel Count 0.0 (0.00-0.2) % Eos # (Auto) 0.72 H (0.04-0.36) x10^3/uL Immature Gran # (Auto) 0.05 H (0.001-0.031) x10^3u/L Absolute Lymphs (auto) 2.84 (1.18-3.74) x10^3/uL Absolute Monos (auto) 0.92 H (0.24-0.86) x10^3/uL Absolute Nucleated RBC 0.00 (0.00-0.012) x10^3u/L Lymphocytes % 23.2 (19.3-51.7) % Monocytes % 7.5 (4.7-12.5) % Eosinophils % 5.9 H (0.7-5.8) % Basophils % 0.4 (0.1-1.2) % Absolute Granulocytes 7.67 H (1.56-6.13) x10^3/uL Basophils # 0.05 (0.01-0.08) x10^3/uL Sodium 141 (135-145) mmol/L Potassium 3.6 (3.5-5.1) mmol/L Chloride 107 (98-107) mmol/L Carbon Dioxide 28 (22-30) mmol/L Anion Gap 9.9 (5-15) MEQ/L BUN 15 (7-17) mg/dL Creatinine 0.81 (0.52-1.04) mg/dL Estimated GFR 91.7 ML/MIN Glucose 93 (74-106) mg/dL Calcium 9.0 (8.4-10.2) mg/dL Total Bilirubin 0.30 (0.2-1.3) mg/dL AST 45 H (14-36) U/L ALT 47 H (0-35) U/L Alkaline Phosphatase 71 (38-126) U/L Serum Total Protein 6.4 (6.3-8.2) g/dL Albumin 3.6 (3.5-5.0) g/dL Urine Color Yellow (Yellow) Urine Appearance Clear (Clear) Urine pH 5.0 (4.6-8.0) Ur Specific [place] >=1.030 A (1.005-1.030) Urine Protein Negative (Negative) Urine Glucose (UA) Negative (Negative) mg/dL Urine Ketones Negative (Negative) Urine Blood Negative (Negative) Urine Nitrite Negative (Negative) Urine Bilirubin Negative (Negative) Urine Urobilinogen 1.0 A (0.2) mg/dL Ur Leukocyte Esterase Negative (Negative) U Hyaline Cast (Auto) NONE SEEN (0-2) /LPF Urine Microscopic RBC 0-2 (0-5) /HPF Urine Microscopic WBC 0-2 (0-5) /HPF Ur Epithelial Cells Moderate A (None Seen) /HPF Urine Bacteria None Seen (None Seen) /HPF Urine Culture Reflexed NO (NO) - Progress Progress: improved, pain not gone completely Progress Note: 12/20/23 21:24 43-year-old is evaluated in the ER for right labial/groin/pubic area swelling and pain after laparoscopic/robotic hysterectomy/bladder lift postop day 4. Patient has no significant erythema of the labia but has swelling and tenderness. Has mild decreased breath sounds bilateral bases. Abdominal tenderness is appropriate for recent surgery. As white count 10, fairly unremarkable chemistries, minimally elevated transaminases with normal bilirubin. Normal renal functions. Obtained CT abdomen pelvis with contrast which showed abdominal wall emphysema consistent with recent surgery and edema/swelling which could be inflammation/hematoma in the right labia/groin area. Chest CT showed bilateral moderate pleural effusion with no cardiomegaly. Patient has normal albumin. She is given symptomatic treatment for pain and given fluid bolus as patient blood pressure was on the lower side. Patient discussed with urology Dr. Thorne partner with Dr. Rivas patient's primary surgeon, recommended transfer to [facility] for further evaluation as patient has been calling them since yesterday and was evaluated at [facility] for Percocet allergies. I have discussed with Dr. Duarte hospitalist at [facility], reviewed history, workup and urology recommendation and patient is accepted transfer. I have discussed the results of workup with patient and family, discussion with urology and their recommendation but patient does not want to go/transfer to [facility]. Patient reported that she has appointment with PA at urology office tomorrow morning and she would rather prefer to go there. Discussed with patient in detail about risk of going which would not only delay the diagnosis but could also lead to worsening of condition which she did not agree and signed AMA paperwork. She is not confused or altered at all. Patient//sister were involved in decision making. 12/20/23 21:28 Counseled pt/family regarding: lab results, diagnosis, need for follow-up, rad results Medical Desision Making - Discussion of managment Care discussed with:: specialist (Dr. Thorne urology, Dr. Duarte [facility]) Reviewed:: Test results Agreed on:: Treatment plan Will see patient: in hospital - Diagnostic Testing Diagnostic test were ordered, analyzed, and reviewed by me: Yes Radiological Interpretation: Reviewed by me - Risk of complications The pt has a mod risk of morbidity or mortality based on: Need for prescription drug management The pt has a high risk of morbidity or mortality based on: Decision regarding hospitilization or escalation of hosp level of care - Departure Departure Disposition: AMA Clinical Impression: Pleural effusion, bilateral, Labial swelling, Postoperative hematoma Condition: Stable Critical Care Time: No Referrals: PARK DUFFY DO [Primary Care Provider] - Follow up/PCP as directed
== END 2023-12-20 20:51 | disposition left against medical advice (07) ==
LOC: ED 14:39
DX: N99.840 Postprocedural hematoma of a genitourinary system organ or structure following a genitourinary system procedure (principal); J90 Pleural effusion, not elsewhere classified; N99.89 Other postprocedural complications and disorders of genitourinary system; R10.2 Pelvic and perineal pain; M79.651 Pain in right thigh; R06.00 Dyspnea, unspecified; Z79.891 Long term (current) use of opiate analgesic; Z79.899 Other long term (current) drug therapy
CPT/HCPCS: 36000; 36415; 71250; 74177; 80053; 81001; 85025; 96360; 96374; 96375; 99284; A4570; J2405; J3010